=== PATIENT | male | born 1970 | race Caucasian/White ===

== ENCOUNTER 2021-03-20 20:01 | Emergency (ER) | payer OTHER ==
[~2021-03-20] VITALS: Ht 165.1 cm; Wt 72.7 kg
[~2021-03-20 20:01] MED LIST: CIPR-278 PO; PANT-31 PO; SIME125C PO
[2021-03-20 21:30] VITALS: BP 145/89
[2021-03-20] MEDS ORDERED: PB/HYOSCY/ATR/SCOP/LIDO/MAALOX 55 ML BOTTLE PO ONE (21:30)
== END 2021-03-20 22:00 | disposition home or self-care (01) ==
LOC: EMS 20:04
DX: K21.9 Gastro-esophageal reflux disease without esophagitis (principal)
CPT/HCPCS: 99282; Z7502; Z7610